=== PATIENT | male | born 1955 | race Caucasian/White ===

== ENCOUNTER 2020-10-14 08:17 | Outpatient (REF) | payer OTHER, SELFPAY | END 2020-10-14 08:18 | disposition home or self-care (01) | LOC: HO.HOSX 08:17 | PROVIDERS: Visit Provider Physician Assistant | DX: Z13.89 Encounter for screening for other disorder (principal) ==

== ENCOUNTER 2021-06-02 14:00 | Outpatient (RCR) | payer OTHER, SELFPAY | END 2021-07-23 08:08 | disposition home or self-care (01) | LOC: HO.PTWFD 14:00 | PROVIDERS: PCP Internal Medicine; Visit Provider Internal Medicine | DX: M54.2 Cervicalgia (principal) | CPT/HCPCS: 97110; 97140; 97162; 97535 ==

== ENCOUNTER → 2021-06-08 09:01 | Outpatient (BNVA) | payer OTHER, SELFPAY | PROVIDERS: PCP Internal Medicine; Visit Provider Surgery Vascular Surgery | DX: I83.11 Varicose veins of right lower extremity with inflammation (principal); I73.9 Peripheral vascular disease, unspecified; I89.0 Lymphedema, not elsewhere classified | CPT/HCPCS: 99202 ==

== ENCOUNTER → 2021-07-12 13:57 | Outpatient (REF) | payer OTHER, SELFPAY ==
--- NOTE | 2021-07-12 14:02 | CA_ITS ---
Transthoracic Echocardiogram Patient (Last, First, Middle): Curly Spencer C Gender: Male Date of : 1955 Age: 65 Procedure Date: 07/12/2021 Procedure Type: Transthoracic Echocardiogram Location: OP Height: 180.34 cm Weight: 136.08 kg BSA: 2.51 m2 Heart Rate: bpm BP: 150 / 80 mmHg Vibration Technician: DSHernando Referring MD: Barb Swift MD Symptoms: R60.0 EDEMA Study Quality: Fair ECG Rhythm: Sinus Conclusions: - The left ventricular systolic function is normal. The calculated ejection fraction is 61% - There is mild calcification of the aortic valve. - No obvious valvular pathology seen on this study. Findings Left Ventricle Normal left ventricular cavity size. There is mildly increased left ventricular wall thickness. The left ventricular systolic function is normal. The calculated ejection fraction is 61% by biplane method. There is no evidence of regional wall motion abnormalities. Right Ventricle Normal right ventricular cavity size and systolic function. Atria Both atria are normal in size. Aortic Valve There is a normal trileaflet aortic valve. There is mild calcification of the aortic valve. There is no aortic valve stenosis. There is trace (trivial) aortic valve regurgitation. Mitral Valve The mitral valve appears normal. There is no mitral valve regurgitation. There is no mitral valve stenosis. Pulmonic Valve The pulmonic valve was not well visualized. Tricuspid Valve Normal tricuspid valve structure. There is trace tricuspid valve regurgitation. The pulmonary artery systolic pressure is normal. Great Vessels The aortic annulus, sinuses of valsalva, and asc aorta are normal in size. Venous The inferior vena cava was not well visualized. Pericardium/Pleural There is no evidence of pericardial effusion. Prior Study Comparison No prior study available for comparison. Recommendations, Care & Conclusions No obvious valvular pathology seen on this study. Measurements 2D Linear Measurements IVSd: 1.13 0.6-0.9/0.6-1.0 cm LVIDd: 5.23 3.9-5.3/4.2-5.9 cm LVIDd Index: 2.08 2.4-3.2/2.2-3.1 cm/m2 LVIDs: 2.97 2.0-3.6 cm LVPWd: 1.15 0.7-1.1 cm Ao Root: 3.50 2.1-3.5 cm LA Diam: 3.50 2.7-3.8/3.0-4.0 cm LAIDs Index: 1.39 1.5-2.3 cm/m2 LV Mass: 291.73 67-162/88-224 g LV Mass Index: 116.23 43-95/49-115 g/m2 LVOT Diam: 2.20 3.0+(-)1.3 cm 2D Systolic Function EF 4C: 62.90 >55% EF 2C: 58.60 >55% EF BiP: 61.10 >55% Mitral Valve MV Pk E: 0.95 MV PK A: 1.06 MV Decel Time: 185.00 E/A: 0.90 E'Lateral: 12.40 E'Medial: 6.85 E/E' Med: 13.90 E/E' Lat: 7.70 PHT: 54.00 MVA PHT: 4.07 Decel [place]: 5.15 Aortic Valve AoV Pk Scott: 1.44 AoV Pk Grad: 8.00 LVOT LVOT Pk Scott: 1.02 LVOT Mn Scott: 0.67 LVOT VTI: 0.21 LVOT Pk Grad: 4.00 LVOT Mn Grad: 2.00 LVOT Diam: 2.20 LVOT Area: 3.80 Diastolic Function MV Pk E: 0.95 MV Pk A: 1.06 E/A: 0.90 E'Medial: 6.85 E/E' Med: 13.90 E' Laterial: 12.40 E/E' Lat: 7.70 Right Ventricle TAPSE (mm): 2.81 Tricuspid Valve TR Pk Scott: 1.90 TR Pk Grad: 14.00 Great Vessels Aorta Ao Root-2D: 3.50 2.0-3.7 cm Ao Asc: 3.70 2.1-3.4 cm Updated in Other Vendor System with Status of Final Gunnar Bell MD electronically signed on 07/13/2021 4:38:46 PM with status of Final
== END ==
LOC: HO.CARD 13:57
PROVIDERS: PCP Internal Medicine; Visit Provider Family Medicine
DX: R60.0 Localized edema (principal)
CPT/HCPCS: 93306

== ENCOUNTER 2021-07-27 14:22 | Outpatient (REF) | payer OTHER, SELFPAY ==
--- NOTE | ~2021-07-27 | US_ITS ---
EXAMINATION: NONINVASIVE ASSESSMENT OF THE ARTERIES OF BOTH LOWER EXTREMITIES WITH PVR EXAM AND BILATERAL LOWER EXTREMITY DUPLEX Aldair Reynoso MD CLINICAL INFORMATION: Peripheral vascular disease. TECHNIQUE: Ankle pulse volume recordings, ankle pressure measurements and ankle brachial indices were obtained of the lower extremity arterial system bilaterally in addition to duplex Doppler techniques with wave form analysis and measurement of velocities in the common femoral, profunda femoral, superficial femoral, popliteal and tibial arteries. The study was performed only at rest. COMPARISON: None FINDINGS: AT REST: Right Le. The right ankle-brachial index is: 1.3 * >0.97-1.25 = normal - no significant arterial disease * 0.75-0.96 = mild peripheral arterial disease * 0.5-0.74 = moderate peripheral arterial disease * <0.50 = severe peripheral arterial disease 2. Right ankle pressure: normal. 3. Right ankle PVR waveform: Mildly blunted. 4. Right direct duplex Doppler findings: Minimal plaque is present and multiphasic flow is seen throughout. Common Femoral: 122 Profunda Femoris: 82 Proximal SFA: 156 Mid SFA: 122 Distal SFA: 119 Popliteal: 70 Tibial: 139 LEFT LE. The left ankle-brachial index is: 1.2 * >0.97-1.25 = normal - no significant arterial disease * 0.75-0.96 = mild peripheral arterial disease * 0.5-0.74 = moderate peripheral arterial disease * <0.50 = severe peripheral arterial disease 2. Left ankle pressure: normal. 3. Left ankle PVR waveform: Mildly blunted. 4. Left direct duplex Doppler findings: Minimal plaque is present and multiphasic flow noted throughout. Common Femoral: 124 Profunda Femoris: 89 Proximal SFA: 127 Mid SFA: 113 Distal SFA: 100 Popliteal: 64 Tibial: 137 US/US arterial duplex LE BI IMPRESSION: There is no evidence of any hemodynamically significant lower extremity arterial disease by pressure, waveform or duplex Doppler criteria at rest.
--- NOTE | ~2021-07-27 | US_ITS ---
EXAMINATION: NONINVASIVE ASSESSMENT OF THE ARTERIES OF BOTH LOWER EXTREMITIES WITH PVR EXAM AND BILATERAL LOWER EXTREMITY DUPLEX Aldair Reynoso MD CLINICAL INFORMATION: Peripheral vascular disease. TECHNIQUE: Ankle pulse volume recordings, ankle pressure measurements and ankle brachial indices were obtained of the lower extremity arterial system bilaterally in addition to duplex Doppler techniques with wave form analysis and measurement of velocities in the common femoral, profunda femoral, superficial femoral, popliteal and tibial arteries. The study was performed only at rest. COMPARISON: None FINDINGS: AT REST: Right Le. The right ankle-brachial index is: 1.3 * >0.97-1.25 = normal - no significant arterial disease * 0.75-0.96 = mild peripheral arterial disease * 0.5-0.74 = moderate peripheral arterial disease * <0.50 = severe peripheral arterial disease 2. Right ankle pressure: normal. 3. Right ankle PVR waveform: Mildly blunted. 4. Right direct duplex Doppler findings: Minimal plaque is present and multiphasic flow is seen throughout. Common Femoral: 122 Profunda Femoris: 82 Proximal SFA: 156 Mid SFA: 122 Distal SFA: 119 Popliteal: 70 Tibial: 139 LEFT LE. The left ankle-brachial index is: 1.2 * >0.97-1.25 = normal - no significant arterial disease * 0.75-0.96 = mild peripheral arterial disease * 0.5-0.74 = moderate peripheral arterial disease * <0.50 = severe peripheral arterial disease 2. Left ankle pressure: normal. 3. Left ankle PVR waveform: Mildly blunted. 4. Left direct duplex Doppler findings: Minimal plaque is present and multiphasic flow noted throughout. Common Femoral: 124 Profunda Femoris: 89 Proximal SFA: 127 Mid SFA: 113 Distal SFA: 100 Popliteal: 64 Tibial: 137 US/US JESSI complete IMPRESSION: There is no evidence of any hemodynamically significant lower extremity arterial disease by pressure, waveform or duplex Doppler criteria at rest.
== END 2021-07-27 14:23 | disposition home or self-care (01) ==
LOC: HO.US 14:22
PROVIDERS: PCP Internal Medicine; Visit Provider Surgery Vascular Surgery
DX: I73.9 Peripheral vascular disease, unspecified (principal)
CPT/HCPCS: 93923; 93925

== ENCOUNTER 2021-08-03 12:50 | Outpatient (REF) | payer OTHER, SELFPAY ==
--- NOTE | ~2021-08-03 | US_ITS ---
EXAMINATION: BILATERAL LOWER EXTREMITY VENOUS ULTRASOUND (Reflux Exam) CLINICAL INDICATION: This is a 65-year-old male with venous insufficiency, varicose veins and reflux. COMPARISON: None. TECHNIQUE: Color flow triplex imaging and compression Doppler was performed to evaluate both the deep and the superficial systems bilaterally. To evaluate the superficial system, the examination was performed in the upright position. Color-flow Doppler ultrasound and compression ultrasound were utilized. In addition, maneuvers were utilized to demonstrate reflux. FINDINGS: 1. DEEP VENOUS ULTRASOUND OF THE RIGHT LOWER EXTREMITY: Common Femoral Vein: Compressible, normal respiratory variation and augmented flow. Femoral vein: Compressible, normal color flow and augmentation. Popliteal Vein: Compressible but with reflux of 660 ms. Deep Reflux: There is reflux in the popliteal vein but not the common femoral vein.. There is no evidence of a Martin's cyst. 2. SUPERFICIAL ULTRASOUND WITH DOPPLER OF RIGHT LOWER EXTREMITY GREAT SAPHENOUS VEIN: Saphenofemoral junction: 0.8 cm. The reflux time is greater than 3 seconds. Mid thigh: 0.7 cm. The reflux time is greater than 3 seconds. Above knee: 0.7 cm. The reflux time is greater than 3 seconds. Below knee: 0.5 cm. The reflux time is 292 ms per Mid calf: 0.4 cm. There is no reflux at this level and below. Ankle: 0.4 cm GSV REFLUX: There is reflux in the great saphenous vein extending from the saphenofemoral junction downward to below the knee. DUPLICATED GREAT SAPHENOUS VEIN: None SMALL SAPHENOUS VEIN: Upper: 0.4 cm Lower: 0.3 cm SSV REFLUX: No evidence of reflux. VEIN OF GIACOMINI: None Imaged. PERFORATORS: There are 0.4 cm calf perforators without reflux. VARICOSITIES: There are 0.5 cm proximal thigh varicose veins, 0.6 cm distal thigh varicose veins with greater than 2556 ms of reflux. There is 0.4 cm proximal calf varicose veins with 1632 ms of reflux. 3. DEEP VENOUS ULTRASOUND OF THE LEFT LOWER EXTREMITY: Common Femoral Vein: Compressible, normal respiratory variation and augmented flow. Femoral vein: Compressible, normal color flow and augmentation. Popliteal Vein: Compressible, normal augmentation. Deep Reflux: There is no evidence of reflux in the deep system in either the common femoral vein or the popliteal vein. There is no evidence of a Martin's cyst. 4. SUPERFICIAL ULTRASOUND WITH DOPPLER OF LEFT LOWER EXTREMITY GREAT SAPHENOUS VEIN: Saphenofemoral junction: 0.8 cm Mid thigh: 0.6 cm Above knee: 0.5 cm Below knee: 0.4 cm Mid calf: 0.4 cm Ankle: 0.4 cm GSV REFLUX: No evidence of reflux. DUPLICATED GREAT SAPHENOUS VEIN: None SMALL SAPHENOUS VEIN: Upper: 0.4 cm Lower: 0.3 cm SSV REFLUX: No evidence of reflux. VEIN OF GIACOMINI: None Imaged. PERFORATORS: There is a 0.4 cm factory representative in the calf with greater than 3 seconds of reflux. VARICOSITIES: There are 0.5 cm proximal thigh and 0.3 cm mid thigh varicose veins without reflux. US/US venous duplex LE BI IMPRESSION: 1. There is a patent right great saphenous vein with greater than 3 seconds of reflux at the saphenofemoral junction and extending down the right leg to below the knee. Reflux is seen at multiple levels. 2. There is a patent right small saphenous vein without evidence of reflux. 3. There are right leg varicose veins as described with reflux. 4. There is a patent left great saphenous vein without evidence of reflux. 5. There is a patent left small saphenous vein without evidence of reflux. 6. There are varicose veins as described without reflux in the left leg. 7. There is reflux in the right popliteal vein.
== END 2021-08-03 12:51 | disposition home or self-care (01) ==
LOC: HO.US 12:50
PROVIDERS: PCP Internal Medicine; Visit Provider Surgery Vascular Surgery
DX: I83.11 Varicose veins of right lower extremity with inflammation (principal)
CPT/HCPCS: 93970

== ENCOUNTER → 2021-11-30 08:39 | Outpatient (BNVA) | payer OTHER, SELFPAY | PROVIDERS: PCP Internal Medicine; Visit Provider Physician Assistant | DX: D64.9 Anemia, unspecified (principal) | CPT/HCPCS: 99202 ==

== ENCOUNTER 2021-11-30 09:34 | Outpatient (REF) | payer OTHER, SELFPAY ==
[2021-11-30 11:27] LABS: MANUAL DIFF FLAG NO
[2021-11-30 11:42] LABS: Basophils Percent Auto 0.5 % (0-2); Eosinophils Absolute Auto 0.1 X10*3/uL (0.0-0.4); Eosinophils Percent Auto 1.7 % (0-4); Hematocrit 35.3 % (42.0-52.0); Hemoglobin 11.6 g/dl (14.0-18.0); Imm Gran Abs Auto 0.02 X10*3/uL (0.00-0.03); Imm Gran Pct Auto 0.2 % (0.0-0.4); Lymphocytes Absolute Auto 2.7 X10*3/uL (1.2-4.9); Lymphocytes Percent Auto 33.3 % (20-40); Mean Corpuscular HGB Conc 32.9 g/dl (31.0-36.0); Mean Corpuscular Hemoglobin 31.3 pg (27.0-33.0); Mean Corpuscular Volume 95.1 fL (80.0-98.0); Mean Platelet Volume 10.2 fL (9.4-12.4); Monocytes Absolute Auto 0.5 X10*3/uL (0.1-1.2); Monocytes Percent Auto 6.2 % (2-11); Neutrophils Absolute Auto 4.7 x10*3/uL (2.0-8.3); Neutrophils Percent Auto 58.1 % (45-73); Platelet Count 238 X10*3/uL (160-400); Red Blood Count 3.71 X10*6/uL (4.60-5.80); Red Cell Distribution Width 11.9 % (11.0-16.0); White Blood Count 8.1 X10*3/uL (4.8-10.8)
[2021-11-30 12:05] LABS: Alanine Aminotransferase 21 U/L (0-40); Albumin Level 4.1 g/dL (3.5-5.0); Alkaline Phosphatase 55 U/L (39-117); Anion Gap 13 (12-20); Aspartate Amino Transferase 20 U/L (5-37); Bilirubin Total 0.4 mg/dL (0.0-1.0); Blood Urea Nitrogen 23 mg/dL (9-16); Calcium 9.2 mg/dL (8.4-10.2); Carbon Dioxide 27 mmol/L (22-29); Chloride 104 mmol/L (96-108); Estimated Glomerular Filt Rate > 60; Glucose Random 125 mg/dL (60-115); Iron 103 mcg/dL (45-160); Percent Iron Saturation 34 % (15-50); Potassium 4.9 mmol/L (3.3-5.1); Sodium 139 mmol/L (135-145); Total Iron Binding Capacity 306 mcg/dL (228-428); Total Protein 7.4 g/dL (6.5-8.0); Unsaturated Iron Binding 203 ug/dL
[2021-11-30 12:10] LABS: Ferritin 184 ng/mL (20-250); Thyroid Stimulating Hormone 2.97 uIU/mL (0.32-4.0)
[2021-11-30 12:25] LABS: Folate 8.5 ng/mL (> or = 4.0); Vitamin B12 467 pg/mL (200-900)
[2021-12-01 20:37] LABS: Transglutaminase IgA <1.0 U/mL
[2021-12-04 05:47] LABS: Smooth Muscle Antibody <20 U (<20)
[2021-12-04 12:37] LABS: Endomysial IgA Antibody Negative (Negative)
== END 2021-11-30 09:35 | disposition home or self-care (01) ==
LOC: HO.WFDLDS 09:34
PROVIDERS: Visit Provider Physician Assistant
DX: K59.09 Other constipation (principal); R74.8 Abnormal levels of other serum enzymes; R19.7 Diarrhea, unspecified; D64.9 Anemia, unspecified
CPT/HCPCS: 36415; 80053; 82607; 82728; 82746; 83540; 84443; 85025; 86015; 86231; 86364

== ENCOUNTER 2023-09-20 11:58 | Outpatient (REF) | payer OTHER, SELFPAY ==
[2023-09-20 14:24] LABS: Hematocrit 35.3 % (42.0-52.0); Hemoglobin 11.9 g/dl (14.0-18.0); Mean Corpuscular HGB Conc 33.7 g/dl (31.0-36.0); Mean Corpuscular Hemoglobin 31.6 pg (27.0-33.0); Mean Corpuscular Volume 93.9 fL (80.0-98.0); Mean Platelet Volume 10.5 fL (9.4-12.4); Platelet Count 298 X10*3/uL (160-400); Red Blood Count 3.76 X10*6/uL (4.60-5.80); White Blood Count 12.1 X10*3/uL (4.8-10.8)
[2023-09-20 14:54] LABS: Creatinine Urine 98.73 mg/dL
[2023-09-20 17:17] LABS: Alanine Aminotransferase 19 U/L (0-40); Albumin Level 4.1 g/dL (3.5-5.0); Alkaline Phosphatase 67 U/L (39-117); Anion Gap 11 (12-20); Aspartate Amino Transferase 22 U/L (5-37); Bilirubin Total 0.3 mg/dL (0.0-1.0); Blood Urea Nitrogen 19 mg/dL (9-16); Calcium 9.1 mg/dL (8.4-10.2); Carbon Dioxide 26 mmol/L (22-29); Chloride 106 mmol/L (96-108); Cholesterol 145 mg/dL (<200); Estimated Glomerular Filt Rate > 60; Glucose Random 82 mg/dL (60-115); HDL Cholesterol 34 mg/dL (>40); LDL Cholesterol Calculated 80 mg/dL (<100); Sodium 139 mmol/L (135-145); TSH reflex Free T4 2.82 uIU/mL (0.32-4.0); Total Protein 7.8 g/dL (6.5-8.0); Triglycerides 156 mg/dL (<150)
== END 2023-09-20 11:59 | disposition home or self-care (01) ==
LOC: HO.CHCLDS 11:58
PROVIDERS: Visit Provider Internal Medicine
DX: E11.9 Type 2 diabetes mellitus without complications (principal); I10 Essential (primary) hypertension
CPT/HCPCS: 36415; 80053; 80061; 82043; 82570; 84443; 85027

== ENCOUNTER 2024-05-31 09:55 | Outpatient (REF) | payer OTHER, SELFPAY ==
--- NOTE | ~2024-05-31 | FL_ITS ---
EXAMINATION: XR FLUOROSCOPY UPPER GI WITH AIR CLINICAL INFORMATION: Dysphagia. COMPARISON: None TECHNIQUE: Fluoroscopic air contrast upper GI examination was performed utilizing standard techniques with thin and thick barium and effervescent granules. Numerous spot images were obtained. FINDINGS: Lateral cine images of the oropharynx and hypopharynx demonstrate normal swallow mechanism with normal epiglottic inversion and soft palate elevation. No tracheal penetration, glottic or subglottic aspiration identified. No nasopharyngeal reflux present. Hypopharyngeal structures appear normal without evidence of mass or diverticulum. There is mild cricopharyngeal achalasia. Dual and single contrast images of the esophagus demonstrate a patulous esophagus with a corkscrew contour. No evidence of stricture, mass, or ulcerations identified. Esophageal peristalsis is severely disorganized. There is significant narrowing of the GE junction bird beak smooth appearance, highly suggestive of achalasia. No evidence of hiatus hernia identified. No significant gastroesophageal reflux was seen during the course of the examination and on reflux views. Dual contrast and single contrast images of the stomach demonstrated a normal contour. There are multiple foci of contrast pooling throughout the stomach that likely represent small superficial aphthous ulcers. No masses are present. Contrast freely passed into the gastric antrum and duodenal bulb without delay. Single and air-contrast images of the duodenal bulb demonstrate no abnormality. The duodenal sweep has a normal appearance, course, and mucosal fold appearance. The imaged proximal jejunum has a normal fold pattern and caliber. FLUOROSCOPY TIME: 4 minutes 54 seconds Number of Spot Images: 11 Number of Cine: 16 DOSE AREA PRODUCT: 4238 uGy-m2 (microgray-meter squared) FL/FL barium swallow IMPRESSION: 1. Patulous esophagus with a corkscrew appearance and severely disorganized peristalsis consistent with severe esophageal motility. 2. Significant narrowing of the GE junction with a smooth narrowed appearance fairly classic for achalasia. 3. Multiple foci of contrast pooling throughout the stomach that likely represent small superficial aphthous ulcers. Recommend correlation with EGD. 4. Mild cricopharyngeal achalasia. This procedure was performed by Josse Dotson PA-C, and supervised by Dr. Reddy Electronically signed by: David Reddy MD 05/31/2024 03:55 PM EDT
== END 2024-05-31 09:56 | disposition home or self-care (01) ==
LOC: HO.XRAY 09:55
PROVIDERS: PCP Internal Medicine; Visit Provider Internal Medicine
DX: R13.11 Dysphagia, oral phase (principal)
CPT/HCPCS: 74220

== ENCOUNTER → 2024-05-31 09:57 | Outpatient (BNV) | payer OTHER, SELFPAY | PROVIDERS: PCP Internal Medicine; Visit Provider Radiology Diagnostic Radiology | DX: R13.10 Dysphagia, unspecified (principal) | CPT/HCPCS: 74221 ==

== ENCOUNTER 2024-11-01 10:32 | Outpatient (REF) | payer OTHER, SELFPAY ==
--- OUTSIDE RECORDS SUMMARY | 2024-11-01 11:38 | XMS_ITS | Encounter Summary ---
Author Organization [employer] Address [address] [place] [address] [address] [address] Care Team Providers Care Gate Tender Name Role Phone Silverio Figueroa MD Primary Care Provider [phone] Encounter Details Date Type Department Care Team (Latest Contact Info) Description 05/09/2022 Abstract [facility] CONVERSIONS Dental, Provider, DDS Social History Tobacco Use Types Packs/Day Years Used Date Smoking Tobacco: Never Assessed Sex and Gender Information Value Date Recorded Sex Assigned at Male 07/25/2022 10:22 AM EDT Legal Sex Male 10:22 AM EDT Gender Identity Male 07/25/2022 10:22 AM EDT Sexual Orientation Straight 07/25/2022 10 :22 AM EDT documented as of this encounter Plan of Treatment Upcoming Encounters Date Type Department Care Team (Late st Contact Info) Description 11/05/2024 11:30 AM EST Office Visit [facility] MED [facility] PEDS [address] [place] [address] Silverio Figueroa MD [address] [place] [address] documented as of this encounter Visit Diagnoses Not on filedocumented in this encounter Care Teams Gate Tender Relationship Specialty Start Date End Date Silverio Figueroa MD [address] [place] [address] PCP - General Internal Medicine 09/25/18 documented as of this encounter
--- OUTSIDE RECORDS SUMMARY | 2024-11-01 11:38 | XMS_ITS | Encounter Summary ---
Author Organization [employer] Address [address] [facility] 7 [place] [address] Care Team Providers Care Medical Director Name Role Phone Silverio Figueroa MD Primary Care Provider [phone] Encounter Details Date Type Department Care Team ([facility] st Contact Info) Description 08/31/2023 Orders Only [facility] MED & PEDS [address] [place], [place] [phone] Silverio Figueroa MD [address] [place] [address] Primary hypertension (Primary Dx); Type 2 diabetes mellitus without complication, without long-term current use of insulin ([facility]) Social History Tobacco Use Types Packs/Day Years Used Date Smoking Tobacco: Every Day Cigarettes Cigars Passive Smoke Exposure: Never Smokeless Tobacco: Never Alcohol Use Standard Drinks/Week Comments Never 0 (1 standard drink = 0.6 oz pur e alcohol) Depression Answer Date Recorded Patient Health Questionnaire-9 Score 0 10/27/2022 Housing Stability Answer Date Recorded What is your housing situation today? I have hinamina gregg 07/13/[address] you li ve. Do you have problems with any of the following? None of the above 07/13/2023 Food Insecurity Answer Date Recorded Within the past 12 months, y ou worried that your food would run out before you got money to buy more: Never True 07/13/2023 Within the past 12 months,th e food you bought just didn't last and you didn't have enough money to get more: Never True Transportation Answer Date Recorded In the past 12 months, has l ack of transportation kept you from medical appts, meetings, work or from getting things needed for daily living? No 07/13/2023 Utilities Answer Date Recorded In the past 12 months, has t he electric, gas, oil or water company threatened to shut off services in your home? No 07/13/2023 Depression Answer Date Recorded Patient Health Questionnaire-2 Score 0 10/27/2022 Sex and Gender Information Value Date Recorded Sex Assigned at Male 07/25/2022 10:22 AM EDT Legal Sex Male 10:22 AM EDT Gender Identity Male 07/25/2022 10:22 AM EDT Sexual Orientation Straight 07/25/2022 10 :22 AM EDT documented as of this encounter Plan of Treatment Upcoming Encounters Date Type Department Care Team ([facility] st Contact Info) Description 11/05/2024 11:30 AM EST Office Visit [facility] MED & PEDS [address] [place] [address] Silverio Figueroa MD [address] [place], [place] [phone] documented as of this encounter Procedures Procedure Name Priority Date/Time Associated Diagnosis Comments ALBUMIN, RANDOM URINE W/CREATININE Routine 09/20/2023 12:00 PM EST Primary hypertension Type 2 diabetes mellitus without complication, without long-term current use of insulin (CMS/HCC) TSH W/REFLEX TO FT4 Routine 09/20/2023 1 1:59 AM EST Primary hypertension Type 2 diabetes mellitus without complication, without long-term current use of insulin (CMS/HCC) CBC Routine 09/20/2023 11:59 AM EST Primary hypertension Type 2 diabetes mellitus without complication, without long-term current use of insulin (CMS/HCC) LIPID PANEL, STANDARD Routine 09/20/2023 11:59 AM EST Primary hypertension Type 2 diabetes mellitus without complication, without long-term current use of insulin (CMS/HCC) COMPREHENSIVE METABOLIC PANEL Routine 09/20/2023 11:59 AM EST Primary hypertension Type 2 diabetes mellitus without complication, without long-term current use of insulin ([facility]) documented in this encounter Results * Albumin, Random Urine W/Creatinine (09/20/2023 12:00 PM EST) Creatinine, Urine 98.73 mg/dL [facility] Microalbumin Urine 6.0 mg/L [facility] Microalbum Creatinine Ratio Ur 6.0 <30 ug/mg cr [facility] Comment:Albumin/Creatinine R atio Reference Ranges: Normal: < 30 ug/mg creatinine Microalbuminuria: 30 - 300 ug/mg creatinineClinical Albuminuria: > 300 ug/mg creatinine Urine (Urine, Random) 09/20/2023 12:00 PM EST 09/20/2023 2:09 PM EST us Silverio Figueroa MD LAB URINE ORDERABLES Final Result Performing Organization Address City/State/[facility] Co de Phone Number [facility] [address] [place] [phone] * (ABNORMAL) Lipid Panel, Standard (09/20/2023 11:59 AM EST) Triglycerides 156(H) <150 mg/dL [facility] Comment:Desirable Triglyceri de: less than 150 mg/dLBorderline High Triglyceride 150-199 mg/dLHigh Triglyceride: 200-499 mg/dLVery High Triglyceride: greater than or equal to 5OO mg/dL Cholesterol 145 <200 mg/dL [facility] Comment:Desirable Cholestero l: less than 200 mg/dLBorderline High Cholesterol: 200-239 mg/dLHigh Cholesterol: greater than 239 mg/dL LDL Cholesterol Calculated 80 <100 mg/dL [facility] Comment:Desirable LDL: less than 100 mg/dLNear Optimal/Above Optimal LDL: 110- 129 mg/dLBorderline High LDL: 130-159 mg/dLHigh LDL: 160-189 mg/dLVery High LDL: greater than or equal to 190 mg/dL HDL Cholesterol 34(L) >40 mg/dL [facility] Comment:Desirable HDL: great er than 40 mg/dL Note: This HDL assay may give artificially low results in patients with liver disease. Blood Venous blood specimen / Unknown 09/20/2023 11:59 AM EST 09/20/2023 2:09 PM EST us Silverio Figueroa MD LAB BLOOD ORDERABLES Final Result Performing Organization Address City/[facility]/ZIP Co de Phone Number [facility] [address] [place] [address] [phone] * TSH W/Reflex to FT4 (09/20/2023 11:59 AM EST) TSH reflex Free T4 2.82 0.32 - 4.0 uIU/mL [facility] Blood 09/20/2023 11:5 9 AM EST 09/20/2023 2:09 PM EST us Silverio Figueroa MD LAB BLOOD ORDERABLES Final Result Performing Organization Address City/[facility]/ZIP Co de Phone Number [facility] [address] [place] [phone] * (ABNORMAL) Comprehensive Metabolic Panel (09/20/2023 11:59 AM EST) Sodium 139 135 - 145 mmol/L [facility] Potassium 4.0 3.3 - 5.1 mmol/L [facility] Chloride 106 96 - 108 mmol/L [facility] Carbon Dioxide 26 22 - 29 mmol/L [facility] Anion Gap 11(L) 12 - 20 [facility] Urea Nitrogen (BUN) 19(H) 9 - 16 mg/dL [facility] Creatinine, Serum 1.03 0.5 - 1.4 mg/dL [facility] Estimated Glomerular Filt Rate >60 [facility] Comment:NOTE: For -Am erican individuals, multiply the result by 1.210.Chronic Kidney Disease: Estimated GFR < 60 mL/min/[id number] Kidney Disease: Estimated GFR < 15 mL/min/1.73m2 Glucose 82 60 - 115 mg/dL [facility] Calcium 9.1 8.4 - 10.2 mg/dL [facility] Bilirubin, Total 0.3 0.0 - 1.0 mg/dL [facility] Aspartate Amino Transferase 22 5 - 37 U/L [facility] Alanine Aminotransferase 19 0 - 40 U/L [facility] Total Protein 7.8 6.5 - 8.0 g/dL [facility] Albumin Level 4.1 3.5 - 5.0 g/dL [facility] Alkaline Phosphatase 67 39 - 117 U/L [facility] Blood Venous blood specimen / Unknown 09/20/2023 11:59 AM EST 09/20/2023 2:09 PM EST us Silverio Figueroa MD LAB BLOOD ORDERABLES Final Result Performing Organization Address City/State/[facility] Co de Phone Number [facility] [address] [place] [phone] * (ABNORMAL) CBC (09/20/2023 11:59 AM EST) White Blood Count 12.1(H) 4.8 - 10.8 X10*3/uL [facility] Red Blood Count 3.76(L) 4.60 - 5.80 X10*6/uL [facility] Hemoglobin 11.9(L) 14.0 - 18.0 g/dl [facility] Hematocrit 35.3(L) 42.0 - 52.0 % [facility] Mean Corpuscular Volume 93.9 80.0 - 98.0 fL [facility] Mean Corpuscular Hemoglobin 31.6 27.0 - 33.0 pg [facility] Mean Corpuscular HGB Conc 33.7 31.0 - 36.0 g/dl [facility] Red Cell Distribution Width 12.0 11.0 - 16.0 % [facility] Platelet Count 298 160 - 400 X10*3/uL [facility] Mean Platelet Volume 10.5 9.4 - 12.4 fL [facility] NRBC Pct Auto 0.0 0.0 - 0.2 /100WBC [facility] NRBC Abs Auto 0.000 0.0 - 0.012 X10*3/uL [facility] Blood Venous blood specimen / Unknown 09/20/2023 11:59 AM EST 09/20/2023 2:09 PM EST us Silverio Figueroa MD LAB BLOOD ORDERABLES Final Result [facility] [address] [place] [phone] [phone] documented in this encounter Visit Diagnoses Diagnosis Primary hypertension- Primary Unspecified essential hypertension Type 2 diabetes mellitus without complication, without long-term current use of insulin ([facility]) documented in this encounter Additional Health Concerns Assessment Noted Time PHQ-9 Depression Total Score: 0 10/27/19 23 1:49 PM EST documented as of this encounter Care Teams Medical Director Relationship Specialty Start Date End Date Silverio Figueroa MD [address] [place] [phone] PCP - General Internal Medicine 09/25/18 documented as of this encounter
--- OUTSIDE RECORDS SUMMARY | 2024-11-01 11:38 | XMS_ITS | Encounter Summary ---
Author Organization [employer] Address [address] [facility] 7 [place] [address] Care Team Providers Care Cdl Truck Driver Name Role Phone Silverio Figueroa MD Primary Care Provider [phone] Reason for Visit * Reason Comments Pre-visit Planning SDOH unable to reach LVM Encounter Details Date Type Department Care Team ([facility] st Contact Info) Description 10/29/2024 Patient Outreach [facility] CHC MED & PEDS [address] [place], [place] [phone] Silverio Figueroa MD [address] [place] [address] Pre-visit Planning (SDOH unable to reach LVM) Social History Tobacco Use Types Packs/Day Years Used Date Smoking Tobacco: Every Day Cigarettes Cigars Passive Smoke Exposure: Never Smokeless Tobacco: Never Alcohol Use Standard Drinks/Week Comments Never 0 (1 standard drink = 0.6 oz pur e alcohol) Depression Answer Date Recorded Patient Health Questionnaire-9 Score 0 10/27/2022 Housing Stability Answer Date Recorded What is your housing situation today? I have hina gregg 03/18/[address] you li ve. Do you have problems with any of the following? None of the above 03/18/2024 Food Insecurity Answer Date Recorded Within the past 12 months, y ou worried that your food would run out before you got money to buy more: Never True 03/18/2024 Within the past 12 months,th e food you bought just didn't last and you didn't have enough money to get more: Never True Transportation Answer Date Recorded In the past 12 months, has l ack of transportation kept you from medical appts, meetings, work or from getting things needed for daily living? No 03/18/2024 Utilities Answer Date Recorded In the past 12 months, has t he electric, gas, oil or water company threatened to shut off services in your home? No 03/18/2024 Depression Answer Date Recorded Patient Health Questionnaire-2 Score 0 10/27/2022 Internet Access Answer Date Recorded Internet Access Q1 Yes 05/27/2024 Internet Access Q2 Not on file 05/27/2024 Sex and Gender Information Value Date Recorded Sex Assigned at Male 07/25/2022 10:22 AM EDT Legal Sex Male 10:22 AM EDT Gender Identity Male 07/25/2022 10:22 AM EDT Sexual Orientation Straight 07/25/2022 10 :22 AM EDT documented as of this encounter Progress Notes * Brinda Crane - 10/29/2024 4:13 PM EST ASIM Woodruff placed outbound call to patient to complete pre-visit planning. No answer at this time. Patient name and were not confirmed. CC left voicemail requesting return call. Direct contactinformation provided. documented in this encounter Plan of Treatment Upcoming Encounters Date Type Department Care Team ([facility] st Contact Info) Description 11/05/2024 11:30 AM EST Office Visit [facility] CHC MED & PEDS [address] [place] [address] Silverio Figueroa MD [address] [place] [address] documented as of this encounter Visit Diagnoses Not on filedocumented in this encounter Additional Health Concerns Assessment Noted Time PHQ-9 Depression Total Score: 0 10/27/19 23 1:49 PM EST documented as of this encounter Care Teams Cdl Truck Driver Relationship Specialty Start Date End Date Silverio Figueroa MD [address] [place] [address] PCP - General Internal Medicine 09/25/18 documented as of this encounter
--- OUTSIDE RECORDS SUMMARY | 2024-11-01 11:38 | XMS_ITS | Encounter Summary ---
Author Organization [employer] Address [address] [facility] 7 [place] [address] Care Team Providers Care Divinity Teacher Name Role Phone Silverio Figueroa MD Primary Care Provider [phone] Reason for Visit * Reason Onset Date Comments Statin Therapy 08/30/2023 Encounter Details Date Type Department Care Team ([facility] Contact Info) Description 08/30/2023 Telephone [facility] MED & PEDS [address] [place], [place] [phone] Silverio Figueroa MD [address] [place] [address] Statin Therapy Social History Tobacco Use Types Packs/Day Years Used Date Smoking Tobacco: Every Day Cigarettes Cigars Passive Smoke Exposure: Never Smokeless Tobacco: Never Alcohol Use Standard Drinks/Week Comments Never 0 (1 standard drink = 0.6 oz pur e alcohol) Depression Answer Date Recorded Patient Health Questionnaire-9 Score 0 10/27/2022 Housing Stability Answer Date Recorded What is your housing situation today? I have hina gregg 07/13/[address] you [...] AM EDT documented as of this encounter Miscellaneous Notes * Telephone Encounter - Gwen Winslow RN - 08/31/2023 10:57 AM EST Placed call to pt regarding message below. Pt agrees to RV appt on 09/20/23. * Telephone Encounter - Gwen Winslow RN - 08/30/2023 6:13 PM EST Please review message below and advise if statin therapy can be prescribed. * Telephone Encounter - Tevin Gray - 08/30/2023 4:51 PM EST Tc from Yoli with [facility] requesting Statin Therapy for pt due to to pt Diabetic Diagnosis, Please contact Yoli At [phone] documented in this encounter Plan of Treatment Upcoming Encounters Date Type Department Care Team (Late st Contact Info) Description 11/05/2024 11:30 AM EST Office Visit [facility] CHC MED & PEDS [address] [place], [place] [phone] Silverio Figueroa MD [address] [place], [place] [phone] documented as of this encounter Visit Diagnoses Not on filedocumented in this encounter Additional Health Concerns Assessment Noted Time PHQ-9 Depression Total Score: 0 10/27/19 23 1:49 PM EST documented as of this encounter Care Teams Divinity Teacher Relationship Specialty Start Date End Date Silverio Figueroa MD [address] [place] [address] PCP - General Internal Medicine 09/25/18 documented as of this encounter
--- OUTSIDE RECORDS SUMMARY | 2024-11-01 11:38 | XMS_ITS | Encounter Summary ---
Author Organization [employer] Address [address] [facility] [address], [place] [address] Care Team Providers Care Greeting Card Writer Name Role Phone Silverio Figueroa MD Primary Care Provider [phone] Reason for Visit * Reason Onset Date Comments CT scan 04/13/2023 Encounter Details Date Type Department Care Team ([facility] st Contact Info) Description 04/13/2023 Telephone [facility] CHC MED & PEDS [address] [place], [place] [phone] Silverio Figueroa MD [address] [place] [address] CT scan Social History Tobacco Use Types Packs/Day Years Used Date Smoking Tobacco: Every Day Cigarettes Cigars Passive Smoke Exposure: Never Smokeless Tobacco: Never Alcohol Use Standard Drinks/Week Comments Never 0 (1 standard drink = 0.6 oz pur e alcohol) Depression Answer Date Recorded Patient Health Questionnaire-9 Score 0 10/27/2022 Depression Answer Date Recorded Patient Health Questionnaire-2 Score 0 10/27/2022 Sex and Gender Information Value Date Recorded Sex Assigned at Male 07/25/2022 10:22 AM EDT Legal Sex Male 10:22 AM EDT Gender Identity Male 07/25/2022 10:22 AM EDT Sexual Orientation Straight 07/25/2022 10 :22 AM EDT documented as of this encounter Miscellaneous Notes * Telephone Encounter - Lisa Nasim - 05/11/2023 2:50 PM EDT Tacho Fernando at [facility] re calling in regards to message below. * Telephone Encounter - Tevin Gray - 05/08/2023 3:59 PM EDT Tc from Kassie with [facility] calling in regards to message sent Previously. Kassie indicates that the form is missing the pack year history. Please contact Kassie at [phone] * Telephone Encounter - Lisa Rouse - 04/19/2023 9:46 AM EDT Tc from Rita at [facility] re calling inn regards to message below. * Telephone Encounter - Natalie Mariano - 04/13/2023 10:35 AM EDT Tc from [facility] calling to advise PCP CT lung screen was sent it wrong form and faxed the form they need it in. documented in this encounter Plan of Treatment Upcoming Encounters Date Type Department Care Team (Late st Contact Info) Description 11/05/2024 11:30 AM EST Office Visit [facility] MED & PEDS [address] [place] [address] Silverio Figueroa MD [address] [place] [address] documented as of this encounter Visit Diagnoses Not on filedocumented in this encounter Additional Health Concerns Assessment Noted Time PHQ-9 Depression Total Score: 0 10/27/19 23 1:49 PM EST documented as of this encounter Care Teams Greeting Card Writer Relationship Specialty Start Date End Date Silverio Figueroa MD [address] [place] [address] PCP - General Internal Medicine 09/25/18 documented as of this encounter
--- OUTSIDE RECORDS SUMMARY | 2024-11-01 11:38 | XMS_ITS | Encounter Summary ---
Author Organization [employer] [facility] Address [address] [place] [address] [address], [place] [address] Care Team Providers Care Registered Pharmacist Name Role Phone Silverio Figueroa MD Primary Care Provider [phone] Encounter Details Date Type Department Care Team (Late st Contact Info) Description 08/22/2022 Abstract [facility] ADULT DENTAL [address] [place] [address] Dental, Provider, DDS Social History Tobacco Use [...] Description 11/05/2024 11:30 AM EST Office Visit [facility] MED & PEDS [address] [place] [address] Silverio Figueroa MD [address] [place] [address] documented as of this encounter Visit Diagnoses Not on filedocumented in this encounter Care Teams Registered Pharmacist Relationship Specialty Start Date End Date Silverio Figueroa MD [address] [place] [address] PCP - General Internal Medicine 09/25/18 documented as of this encounter
--- OUTSIDE RECORDS SUMMARY | 2024-11-01 11:38 | XMS_ITS | Encounter Summary ---
Author Organization [employer] Address [address] [place] [address] [address], [place] [address] Care Team Providers Care Medicine Man Name Role Phone Silverio Figueroa MD Primary Care Provider [phone]- [phone] Encounter Details Date Type Department Care Team (Latest Contact Info) Description 05/28/2019 Abstract [facility] CONVERSIONS Dental, Provider, DDS Social History Tobacco [...] Description 11/05/2024 11:30 AM EST Office Visit [facility] CHC MED & PEDS [address] [place] [address] Silverio Figueroa MD [address] [place] [address] documented as of this encounter Visit Diagnoses Not on filedocumented in this encounter Care Teams Medicine Man Relationship Specialty Start Date End Date Silverio Figueroa MD [address] [place] [address] PCP - General Internal Medicine 09/25/18 documented as of this encounter
--- OUTSIDE RECORDS SUMMARY | 2024-11-01 11:38 | XMS_ITS | Encounter Summary ---
Author Organization [employer] Address [address] [facility] 7 [place] [address] Care Team Providers Care Manager Education Name Role Phone Silverio Figueroa MD Primary Care Provider [phone] Encounter Details Date Type Department Care Team (Late st Contact Info) Description 09/01/2023 Abstract [facility] [address] [place] [address] Silverio Figueroa MD [address] [place] [address] Social History Tobacco Use Types Packs/Day Years [...] Description 11/05/2024 11:30 AM EST Office Visit [facility] MED & PEDS [address] [place] [address] Silverio Figueroa MD [address] [place] [address] documented as of this encounter Visit Diagnoses Not on filedocumented in this encounter Additional Health Concerns Assessment Noted Time PHQ-9 Depression Total Score: 0 10/27/19 23 1:49 PM EST documented as of this encounter Care Teams Manager Education Relationship Specialty Start Date End Date Silverio Figueroa MD [address] [place] [address] PCP - General Internal Medicine 09/25/18 documented as of this encounter
--- OUTSIDE RECORDS SUMMARY | 2024-11-01 11:38 | XMS_ITS | Encounter Summary ---
Author Organization [email or web address] Address [address] [place] [address] [address], [place] [address] Care Team Providers Care Transit Worker Name Role Phone Silverio Figueroa MD Primary Care Provider [phone]- [phone] Encounter Details Date Type Department Care Team (Latest Contact Info) Description 02/18/2022 Abstract [facility] CONVERSIONS Dental, Provider, DDS Social History Tobacco [...] Description 11/05/2024 11:30 AM EST Office Visit [facility] CHC MED & PEDS [address] [place] [address] Silverio Figueroa MD [address] [place] [address] documented as of this encounter Visit Diagnoses Not on filedocumented in this encounter Care Teams Transit Worker Relationship Specialty Start Date End Date Silverio Figueroa MD [address] [place] [address] PCP - General Internal Medicine 09/25/18 documented as of this encounter
--- OUTSIDE RECORDS SUMMARY | 2024-11-01 11:38 | XMS_ITS | Encounter Summary ---
Author Organization [employer] Address [address] [place] [address] 7[place] [address] Care Team Providers Care Cook Chief Name Role Phone Silverio Figueroa MD Primary Care Provider [phone]- [phone] Encounter Details Date Type Department Care Team (Latest Contact Info) Description 10/13/2020 Abstract [facility] CONVERSIONS Dental, Provider, DDS Social History Tobacco [...] Description 11/05/2024 11:30 AM EST Office Visit [facility] CHC MED & PEDS [address] [place] [address] Silverio Figueroa MD [address] [place] [address] documented as of this encounter Visit Diagnoses Not on filedocumented in this encounter Care Teams Cook Chief Relationship Specialty Start Date End Date Silverio Figueroa MD [address] [place] [address] PCP - General Internal Medicine 09/25/18 documented as of this encounter
--- OUTSIDE RECORDS SUMMARY | 2024-11-01 11:38 | XMS_ITS | Encounter Summary ---
Author Organization [employer] Address [address] [place] [address] [address] Care Team Providers Care Mushroom Picker Name Role Phone Silverio Figueroa MD Primary Care Provider +1- [phone] Encounter Details Date Type Department Care Team (Late Contact Info) Description 01/27/2023 Orders Only [facility] MEDICINE [address] [place], [place] [phone] Josie Perez LPN Social History Tobacco Use Types Packs/Day Years [...] Description 11/05/2024 11:30 AM EST Office Visit [facility] CHC MED & PEDS [address] [place], [place] [phone] Silverio Figueroa MD [address] [place], [place] [phone] documented as of this encounter Visit Diagnoses Not on filedocumented in this encounter Additional Health Concerns Assessment Noted Time PHQ-9 Depression Total Score: 0 10/27/19 23 1:49 PM EST documented as of this encounter Care Teams Mushroom Picker Relationship Specialty Start Date End Date Silverio Figueroa MD [address] [place] [address] PCP - General Internal Medicine 09/25/18 documented as of this encounter
--- OUTSIDE RECORDS SUMMARY | 2024-11-01 11:38 | XMS_ITS | Clinical Summary ---
Author Organization [employer] Address [address] [facility] 7[address] [place] [address] Care Team Providers Care Metal Furniture Polisher Name Role Phone Silverio Figueroa MD Primary Care Provider [phone]- [phone] Allergies No known active allergies Medications ibuprofen 800 MG tabletIndication s:Chronic midline low back pain without sciatica Take 1 tab orally tid prn pain 90 tablet 3 3 Active Blood Glucose Monitoring Suppl (FreeStyle [place] Lite) w/Device kit TEST BLOOD SUGAR EVERY DAY 2 Active Blood Glucose Monitoring Suppl (FreeStyle glucose monitoring) kitIndications:T ype 2 diabetes mellitus without complication, without long-term current use of insulin ([facility]) To use 2 times a day 1 each 3 Active Additional Information Patient not taking.Reported on 04/23/2024 FREESTYLE LITE test strip TEST BLOOD SUGAR EVERY DAY 50 strip 11 3 Active Additional Information Patient not taking.Reported on 04/23/2024 Blood Glucose Monitoring Suppl (ONE TOUCH ULTRA 2) w/Device kit 1 Units 3 times daily. 1 kit 3 Active Additional Information Patient not taking.Reported on 04/23/2024 OneTouch Delica Lancets 33G misc 1 Units 3 times daily. 100 each 11 3 Active Additional Information Patient not taking.Reported on 04/23/2024 verapamil SR (Calan SR) 120 MG ER tabletIndication s:Primary hypertension Take 1 tablet (120 mg) by mouth at bedtime. Do not crush or chew. 30 tablet 11 4 11/21/19 25 Active cholecalciferol (Vitamin D-3) 50 MCG (1999 UT) capsule TAKE ONE CAPSULE BY MOUTH AT BEDTIME 90 capsule 3 4 Active varenicline (Chantix) 0.5 MG tabletIndication s:Smoking Take 1 tablet (0.5 mg) by mouth Once per day for 3 days, THEN 1 tablet (0.5 mg) 2 times daily for 4 days, THEN 2 tablets (1 mg) 2 times daily. Take with full glass of water.. 71 tablet 2 4 04/01/20 25 Active nicotine (Nicoderm CQ) 14 MG/24HR patchIndications :Smoking Place 1 patch on the skin 1 (one) time each day at the same time. 30 patch 4 Active bisoprolol (Zebeta) 5 MG tabletIndication s:Essential hypertension TAKE ONE TABLET BY MOUTH EVERY MORNING 30 tablet 5 4 Active ammonium lactate (Lac-Hydrin) 12 % lotionIndication s:Dry skin APPLY TO THE AFFECTED AREA(S) NEEDED FOR DRY SKIN 226 g 2 4 Active furosemide (Lasix) 20 MG tablet TAKE ONE TABLET EVERY MORNING AND TAKE ONE-HALF TABLET EVERY afternoon 135 tablet 1 4 Active Dulaglutide 4.5 MG/0.5ML solution auto-injectorInd ications:Type 2 diabetes mellitus without complication, without long-term current use of insulin ([facility]) Inject 0.5 mL (4.5 mg) under the skin 1 (one) time per week. 2 mL 3 4 Active Active Problems Problem Noted Date Diagnosed Date Diabetes mellitus 10/27/2022 Chronic midline low back pain without sciatica 0 09/27/2022 Chronic hepatitis C 09/20/2016 Elevated LFTs 08/24/2016 Hypertensive disorder 01/22/2015 Arthropathy 12/30/2011 Backache 12/30/2011 Pain in joint involving lower leg 12/30/2011 Talipes 12/30/2011 Tobacco dependence syndrome 12/30/2011 Encounters Date Type Department Care Team Description 10/29/2024 Patient Outreach [facility] [address] [place] [address] Silverio Figueroa MD Pre-visit Planning (SDOR unable to reach [facility]) 09/24/2024 10:30 AM EST Office Visit [facility] [address] [place] [address] Silverio Figueroa MD Primary hypertension (Primary Dx); Type 2 diabetes mellitus without complication, without long-term current use of insulin ([facility]); Elevated LFTs 09/24/2024 Travel 08/20/2024 Travel 08/16/2024 9:30 AM EST Office Visit [facility] ADULT DENTAL [address] [place] [address] Minoo Dumont, NILDA 08/01/2024 9:00 AM EST Office Visit [facility] AD[facility] [address] [place] [address] Sherry Johnson Dental calculus (Primary Dx) from Last 3 Months Immunizations Name Administration Dates Next Due Influenza High-dose Quadriva lent Preservative Free 07/25/2023,06/21/2022 Influenza Injectable Quadriv alant Preservative Free IIV4 MDCK 08/09/2021,06/29/2020 Influenza injectable quadriv alent IIV4 with preservative 06/10/2019,07/25/2018,06/26/2017,2015,06/24/2015 Influenza, High Dose Seasona l, Preservative Free 06/05/2024 Influenza, IIV3, injectable 08/12/2014 Influenza, Split (incl. keegan fied surface antigen) 05/29/2013,08/30/2012 Tdap 08/22/2016 Zoster, Recombinant 03/30/2021,01/26/2021 Zoster, live 06/26/2017 Family History Medical History Relation Name Comments Blindness Other Relation Name Status Comments Other Social History Tobacco Use Types Packs/Day Years Used Date Smoking Tobacco: Every Day Cigarettes Cigars Passive Smoke Exposure: Never Smokeless Tobacco: Never Tobacco Cessation:Ready to Q uit: Not Asked; Counseling Given: Not Answered Alcohol Use Standard Drinks/Week Comments Never 0 [...] Orientation Straight 07/25/2022 10 :22 AM EDT Last Filed Vital Signs Vital Sign Reading Time Taken Comments Blood Pressure 156/78 09/24/2024 10:42 AM EST Pulse 75 09/24/2024 10:42 AM EST Temperature 36.7 ??C (98 ??F) 09/24/2024 10:42 AM EST Respiratory Rate 20 09/24/2024 10:42 AM EST Oxygen Saturation 95% 09/24/2024 10:42 AM EST Inhaled Oxygen Concentration - - Weight 135 kg (297 lb) 09/24/2024 10:42 AM EST Height 180.3 cm (5' 11 ) 09/24/2024 10:42 AM EST Body Mass Index 41.42 09/24/2024 10:42 AM EST Plan of Treatment Upcoming Encounters Date Type Department Care Team (Late st Contact Info) Description 11/05/2024 11:30 AM EST Office Visit [facility] [address] [place] [address] Silverio Figueroa MD [address] [place] [phone] Health Maintenance Due Date Last Done Comments CT Colonography 1956 Colonoscopy 1956 Colorectal Cancer Screening 1956 Dental X-Ray: Full Mouth 1956 FIT DNA/Cologuard 1956 FIT 1956 FOBT 1956 Sigmoidoscopy 1956 Diabetes: Foot Exam 1966 Alcohol/Substance Use Screening 1968 Hepatitis A Vaccines (1 of 2 - Risk 2-dose series) 1975 Pneumococcal Vaccine: 50+ Years (1 of 2 - PCV) 1975 Hepatitis B Vaccines (1 of 3 - Risk 3-dose series) 2016 RSV Patients and Patients Aged 60 years or older (1 - Risk 60-74 years 1-dose series) 2016 Depression Screening 10/27/2023 10/27/2022, 10/27/19 23 COVID-19 Vaccine ( season) 2024 01/05/2021, 12/08/2020 Diabetes: Urine Protein Screening 09/20/2024 09/20/2023 Lipid Panel 09/20/2024 09/20/2023, 09/25, 01/05/2021 Eye Exam 12/14/2024 12/15/2023, 01/2023, 09/29/2022, Additional history exists Dental Oral Exam 01/30/2025 08/01/2024, 11/2023, 07/25/2023 Dental Prophylaxis 01/30/2025 08/01/2024, 0 01/26/2024, 07/25/2023, Additional history exists SDOH Screening 03/18/2025 03/18/2024 Diabetes: Hemoglobin A1C 03/24/202509/24/2 024, 03/25/2024, 10/27/2022, Additional history exists Dental X-Ray: Bitewings 08/02/2025 08/01/20 24, 07/25/2023, 07/06/2023 Tobacco Screening 09/24/2025 09/24/2024 DTaP/Tdap/Td Vaccines (2 - Td or Tdap) 08/22/2026 08/22/2016 Zoster Vaccines Completed 03/30/2021, 0512/2020, 06/26/2017 Influenza Vaccine Completed 06/05/2024, , 06/21/2022, Additional history exists HIB Vaccines Aged Out No longer eligi ble based on patient's age to complete this topic HPV Vaccines Aged Out No longer eligi ble based on patient's age to complete this topic IPV Vaccines Aged Out No longer eligi ble based on patient's age to complete this topic Meningococcal Vaccine Aged Out No esther hector eligible based on patient's age to complete this topic RSV under 20 months Aged Out No longe r eligible based on patient's age to complete this topic Rotavirus Vaccines Aged Out No longer eligible based on patient's age to complete this topic Procedures Procedure Name Priority Date/Time Associated Diagnosis Comments POCT GLUCOSE Routine 09/24/2024 11:36 AM EST Type 2 diabetes mellitus without complication, without long-term current use of insulin ([facility]) POCT GLYCATED HEMOGLOBIN, TOTAL Routine 09/24/2024 11:34 AM EST Type 2 diabetes mellitus without complication, without long-term current use of insulin ([facility]) ADJUNCTIVE GENERAL SERVICES - PROFESSIONAL VISITS - CASE PRESENTATION, SUBSEQUENT TO DETAILED AND EXTENSIVE TREATMENT PLANNING Routine 08/16/2024 9:30 AM EST 28 DB RESTORATIVE - RESIN-BASED COMPOSITE RESTORATIONS - DIRECT - RESIN-BASED COMPOSITE - TWO SURFACES, POSTERIOR Routine 08/16/2024 9:30 AM EST COMPREHENSIVE PERIODONTAL EVALUATION - NEW OR ESTABLISHED PATIENT Routine 08/01/2024 9:00 AM EST PERIODIC ORAL EVALUATION - ESTABLISHED PATIENT Routine 08/01/2024 9:00 AM EST ORAL HYGIENE INSTRUCTIONS Routine 08/01/2024 9:00 AM EST INTRAORAL - PERIAPICAL EACH ADDITIONAL RADIOGRAPHIC IMAGE Routine 08/01/2024 9:00 AM EST INTRAORAL - PERIAPICAL EACH ADDITIONAL RADIOGRAPHIC IMAGE Routine 08/01/2024 9:00 AM EST INTRAORAL - PERIAPICAL FIRST RADIOGRAPHIC IMAGE Routine 08/01/2024 9:00 AM EST BITEWINGS - 4 RADIOGRAPHIC IMAGES Routine 08/01/2024 9:00 AM EST ADJUNCTIVE GENERAL SERVICES - PROFESSIONAL VISITS - CASE PRESENTATION, SUBSEQUENT TO DETAILED AND EXTENSIVE TREATMENT PLANNING Routine 08/01/2024 9:00 AM EST PROPHYLAXIS - ADULT Routine 08/01/2024 9 :00 AM EST ALBUMIN, RANDOM URINE W/CREATININE Routine 09/20/2023 12:00 PM EST Primary hypertension Type 2 diabetes mellitus without complication, without long-term current use of insulin ([facility]) LIPID PANEL, STANDARD Routine 09/20/2023 11:59 AM EST Primary hypertension Type 2 diabetes mellitus without complication, without long-term current use of insulin ([facility]) from Last 3 Months or Most Recently Relevant to Health Maintenance Results * POCT Glucose (09/24/2024 11:36 AM EST) Glucose Blood, POC 122 60 - 200 mg/dL QC Media Lot # [id number] Lot# Expiration Date 482,[id number] Blood Capillary blood specimen / Unknown 09/24/2024 11:36 AM EST Silverio Figueroa MD POINT OF CARE TEST ENTER/ED IT ORDERABLES Final Result * POCT HGB A1C (09/24/2024 11:34 AM EST) Hemoglobin A1C 5.8 4.0 - 6.0 % QC Media Lot # [id number] Lot# Expiration Date [id number] Blood 09/24/2024 11:3 4 AM EST Silverio Figueroa MD POINT OF CARE TEST ENTER/ED IT ORDERABLES Final Result * Albumin, Random Urine W/Creatinine (09/20/2023 12:00 PM EST) Creatinine, Urine 98.73 mg/dL [facility] Microalbumin Urine 6.0 mg/L [facility] Microalbum Creatinine Ratio Ur 6.0 <30 ug/mg cr [facility] Comment:Albumin/Creatinine R atio Reference Ranges: Normal: < 30 ug/mg creatinine Microalbuminuria: 30 - 300 ug/mg creatinineClinical Albuminuria: > 300 ug/mg creatinine Urine (Urine, Random) 09/20/2023 12:00 PM EST 09/20/2023 2:09 PM EST us Silverio Figueroa MD LAB URINE ORDERABLES Final Result Performing Organization Address [facility] Co de Phone Number [facility] [address] [place] [phone] * (ABNORMAL) Lipid Panel, Standard (09/20/2023 11:59 AM EST) Triglycerides 156(H) <150 mg/dL [facility] Comment:Desirable Triglyceri de: less than 150 mg/dLBorderline High Triglyceride 150-199 mg/dLHigh Triglyceride: 200-499 mg/dLVery High Triglyceride: greater than or equal to 5OO mg/dL Cholesterol 145 <200 mg/dL [facility] Comment:Desirable Cholestero l: less than 200 mg/dLBorderline High Cholesterol: 200-239 mg/dLHigh Cholesterol: greater than 239 mg/dL LDL Cholesterol Calculated 80 <100 mg/dL [facility] Comment:Desirable LDL: less than 100 mg/dLNear Optimal/Above Optimal LDL: 110- 129 mg/dLBorderline High LDL: 130-159 mg/dLHigh LDL: 160-189 mg/dLVery High LDL: greater than or equal to 190 mg/dL HDL Cholesterol 34(L) >40 mg/dL [facility] Comment:Desirable HDL: great er than 40 mg/dL Note: This HDL assay may give artificially low results in patients with liver disease. Blood Venous blood specimen / Unknown 09/20/2023 11:59 AM EST 09/20/2023 2:09 PM EST us Silverio Figueroa MD LAB BLOOD ORDERABLES Final Result Performing Organization Address [facility]/ZIP Co de Phone Number [facility] [address] [place] [phone] from Last 3 Months or Most Recently Relevant to Health Maintenance Insurance MEDICARE HSN FULL DENTAL - HSN FULL (MEDICAID) Care Teams Metal Furniture Polisher Relationship Specialty Start Date End Date Silverio Figueroa MD [address] [place] [phone] PCP - General Internal Medicine 09/25/18
--- OUTSIDE RECORDS SUMMARY | 2024-11-01 11:38 | XMS_ITS | Encounter Summary ---
Author Organization [employer] Address [address] [place] [address] [address], [place] [address] Care Team Providers Care Band Saw Filer Name Role Phone Silverio Figueroa MD Primary Care Provider [phone] Reason for Visit * Reason Comments Med Refill Encounter Details Date Type Department Care Team ([facility] Contact Info) Description 10/22/2022 Refill [facility] MED & PEDS [address] [place] [address] Silverio Figueroa MD [address] [place] [address] Essential hypertension (Primary Dx) Social History Tobacco Use Types Packs/Day Years Used Date Smoking Tobacco: Every Day Cigarettes Cigars Smokeless Tobacco: Never Sex and Gender Information Value Date Recorded Sex Assigned at Male 07/25/2022 10:22 AM EDT Legal Sex Male 10:22 AM EDT Gender Identity Male 07/25/2022 10:22 AM EDT Sexual Orientation Straight 07/25/2022 10 :22 AM EDT COVID-19 Exposure Response Date Recorded In the last 10 days, have yo u been in contact with someone who was confirmed or suspected to have Coronavirus/COVID-19? No / Unsure 10/24/2022 9:02 AM EST documented as of this encounter Plan of Treatment Upcoming Encounters Date Type Department Care Team ([facility] Contact Info) Description 11/05/2024 11:30 AM EST Office Visit [facility] MED & PEDS [address] [place], [place] [phone] Silverio Figueroa MD [address] [place] [address] documented as of this encounter Visit Diagnoses Diagnosis Essential hypertension- Primary Unspecified essential hypertension documented in this encounter Care Teams Band Saw Filer Relationship Specialty Start Date End Date Silverio Figueroa MD [address] [place] [address] PCP - General Internal Medicine 09/25/18 documented as of this encounter
--- OUTSIDE RECORDS SUMMARY | 2024-11-01 11:38 | XMS_ITS | Encounter Summary ---
Author Organization [employer] Address [address] [facility] [address] [place] [address] Care Team Providers Care Slide Fasteners Inspector Name Role Phone Silverio Figueroa MD Primary Care Provider [phone] Encounter Details Date Type Department Care Team ([facility] st Contact Info) Description 04/24/2024 Orders Only [facility] MED & PEDS [address] [place], [place] [phone] Silverio Figueroa MD [address] [place] [address] Social History Tobacco Use Types Packs/Day Years [...] Description 11/05/2024 11:30 AM EST Office Visit [facility] MED & PEDS [address] [place] [address] Silverio Figueroa MD [address] [place] [address] documented as of this encounter Visit Diagnoses Not on filedocumented in this encounter Additional Health Concerns Assessment Noted Time PHQ-9 Depression Total Score: 0 10/27/19 23 1:49 PM EST documented as of this encounter Care Teams Slide Fasteners Inspector Relationship Specialty Start Date End Date Silverio Figueroa MD [address] [place] [address] PCP - General Internal Medicine 09/25/18 documented as of this encounter
--- OUTSIDE RECORDS SUMMARY | 2024-11-01 11:38 | XMS_ITS | Encounter Summary ---
Author Organization [employer] Address [address] [facility] [address] [place] [address] Care Team Providers Care Ironworker Apprentice Name Role Phone Silverio Figueroa MD Primary Care Provider [phone] Reason for Visit * Reason Onset Date Comments Medication Question 06/14/2024 Encounter Details Date Type Department Care Team ([facility] st Contact Info) Description 06/14/2024 Telephone [facility] [address] [place] [address] Silverio Figueroa MD [address] [place] [address] Medication Question Social History Tobacco Use Types Packs/Day Years [...] encounter Miscellaneous Notes * Telephone Encounter - Jack Verdin - 07/12/2024 2:11 PM EDT Tc from [facility] with [facility] medication management team requesting a call back in regards to pt not being on statin medication. Please contact at [phone] * Telephone Encounter - Tevin Gray - 06/28/2024 9:28 AM EDT Tc from [facility] requesting status on message above. * Telephone Encounter - Albert Nagel - 06/14/2024 9:32 AM EDT TC from [facility] states pt is a Diabetes pt not on a statin . Would like PCP to go over patient status to see if medication would help lower cardiac risk base line documented in this encounter Plan of Treatment Upcoming Encounters Date Type Department Care Team (Late st Contact Info) Description 11/05/2024 11:30 AM EST Office Visit [facility] MED & PEDS [address] [place] [address] Silverio Figueroa MD [address] [place] [address] documented as of this encounter Visit Diagnoses Not on filedocumented in this encounter Additional Health Concerns Assessment Noted Time PHQ-9 Depression Total Score: 0 10/27/19 23 1:49 PM EST documented as of this encounter Care Teams Ironworker Apprentice Relationship Specialty Start Date End Date Silverio Figueroa MD [address] [place] [address] PCP - General Internal Medicine 09/25/18 documented as of this encounter
--- OUTSIDE RECORDS SUMMARY | 2024-11-01 11:38 | XMS_ITS | Encounter Summary ---
Author Organization [employer] Address [address] [facility] [address] [place] [address] Care Team Providers Care Answering Service Telephone Operator Name Role Phone Silverio Figueroa MD Primary Care Provider [phone] Reason for Referral * Consultation (Routine) - Closed Specialty Diagnoses / Procedures Referred By Contvel t Referred To Contact Gastroenterology Diagnoses Achalasia Silverio Figueroa MD [address] [place] [phone] Phone: tel: fax: [facility] [address] [place], [place] Phone: tel: fax: Referral ID Status Reason Start Date Expiration Date V isits Requested Visits Authorized [id number] Closed Specialty Services Required 06/04/2024 06/04/2025 1 1 Encounter Details Date Type Department Care Team (Late st Contact Info) Description 06/04/2024 Orders Only [facility] CHC MED & PEDS [address] [place], [place] [phone] Silverio Figueroa MD [address] [place] [phone] Achalasia (Primary Dx) Social History Tobacco Use Types [...] 11/05/2024 11:30 AM EST Office Visit [facility] MED & PEDS [address] [place] [address] Silverio Figueroa MD [address] [place] [address] Scheduled Referrals Name Type Priority Associated Diagnoses Order Schedule Referral to Gastroenterology Outpatient Referral Routine Achalasia Expected: 06/04/2024 (Approximate), Expires: 06/04/2025 documented as of this encounter Visit Diagnoses Diagnosis Achalasia- Primary Achalasia and cardiospasm documented in this encounter Additional Health Concerns Assessment Noted Time PHQ-9 Depression Total Score: 0 10/27/19 23 1:49 PM EST documented as of this encounter Care Teams Answering Service Telephone Operator Relationship Specialty Start Date End Date Silverio Figueroa MD [address] [place] [address] PCP - General Internal Medicine 09/25/18 documented as of this encounter
[2024-11-01 14:17] LABS: MANUAL DIFF FLAG NO
[2024-11-01 14:23] LABS: Basophils Absolute Auto 0.1 X10*3/uL (0.0-0.2); Basophils Percent Auto 0.7 % (0-2); Eosinophils Absolute Auto 0.2 X10*3/uL (0.0-0.4); Eosinophils Percent Auto 1.8 % (0-4); Hematocrit 35.7 % (42.0-52.0); Hemoglobin 12.3 g/dl (14.0-18.0); Imm Gran Abs Auto 0.02 X10*3/uL (0.00-0.03); Imm Gran Pct Auto 0.2 % (0.0-0.4); Lymphocytes Absolute Auto 2.4 X10*3/uL (1.2-4.9); Lymphocytes Percent Auto 26.5 % (20-40); Mean Corpuscular HGB Conc 34.5 g/dl (31.0-36.0); Mean Corpuscular Hemoglobin 31.8 pg (27.0-33.0); Mean Corpuscular Volume 92.2 fL (80.0-98.0); Mean Platelet Volume 10.4 fL (9.4-12.4); Monocytes Absolute Auto 0.6 X10*3/uL (0.1-1.2); Monocytes Percent Auto 6.1 % (2-11); Neutrophils Percent Auto 64.7 % (45-73); Platelet Count 248 X10*3/uL (160-400); Red Blood Count 3.87 X10*6/uL (4.60-5.80); Red Cell Distribution Width 11.9 % (11.0-16.0); White Blood Count 9.2 X10*3/uL (4.8-10.8)
[2024-11-01 14:58] LABS: Alanine Aminotransferase 25 U/L (0-40); Albumin Level 4.4 g/dL (3.5-5.0); Alkaline Phosphatase 65 U/L (39-117); Anion Gap 15 (12-20); Aspartate Amino Transferase 32 U/L (5-37); Bilirubin Total 0.4 mg/dL (0.0-1.0); Blood Urea Nitrogen 17 mg/dL (9-16); Calcium 9.1 mg/dL (8.4-10.2); Carbon Dioxide 23 mmol/L (22-29); Chloride 104 mmol/L (96-108); Cholesterol 141 mg/dL (<200); Estimated Glomerular Filt Rate > 60; Glucose Random 105 mg/dL (60-115); HDL Cholesterol 34 mg/dL (>40); LDL Cholesterol Calculated 82 mg/dL (<100); Potassium 4.2 mmol/L (3.3-5.1); Sodium 138 mmol/L (135-145); Total Protein 8.2 g/dL (6.5-8.0); Triglycerides 128 mg/dL (<150)
[2024-11-01 15:18] LABS: TSH reflex Free T4 2.87 uIU/mL (0.32-4.0)
== END 2024-11-01 10:33 | disposition home or self-care (01) ==
LOC: HO.CHCLDS 10:32
PROVIDERS: Visit Provider Internal Medicine
DX: E11.9 Type 2 diabetes mellitus without complications (principal)
CPT/HCPCS: 36415; 80053; 80061; 84443; 85025

== ENCOUNTER 2025-08-14 10:30 | Outpatient (AMB) | payer MEDICARE, MEDICAID, SELFPAY ==
--- NOTE | 2025-08-14 10:35 | MHC.OFFVIS ---
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 Patient states he has one big vein on his right leg, no issues with the left leg. Patient had right knee replacement around 8-10 years ago. 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 The patient has a large cluster of varicose veins on the leg where a knee replacement was previously performed, and notes occasional pain and swelling. The patient also notes another vein that seems to be starting to protrude. Past medical history is significant for being born with club feet, which required multiple surgical corrections. The patient was previously evaluated in this office in July 2021 for the patient's arteries, which were found to be normal. 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 It has been affecting there daily activities including walking. It is noted more so in right leg. Patient denies any previous venous surgery or injections. Patient denies any history of DVT/ PE. Patient denies any history of phlebitis. Trial of compression includes - [id number] They now present for vascular evaluation regarding their varicose veins. [facility] Medical History HTN (hypertension) Elevated LFTs Chronic hepatitis C Pain in limb Nondependent tobacco use disorder Arthropathy Backache Pain in joint involving lower leg [place] Surgical History Hx of hernia repair Hx of total knee replacement Hx of appendectomy Hx of shoulder surgery Hx of foot surgery Hx of colonoscopy Social History Household Members: Spouse Alcohol intake: never Tobacco use type: Cigarette Cigarettes Per Day: 10 Review of Systems Const Reports as per HPI ENT Reports no additional complaints Card Denies chest pain, Denies chest pain at rest and Denies chest pain with activity Resp Denies chest congestion and Denies cough GI Reports no additional complaints Musc Details: pain over varicosities, aching of lower extremities, swelling, cramping, heaviness and tiredness, itching Denies abnormal gait Skin/Breast Reports pruritus and Denies wounds Neuro Reports no additional complaints and Denies abnormal gait Psych Denies no additional complaints Physical Exam Const General: cooperative, healthy appearing and comfortable Orientation/consciousness: oriented to person, oriented to place and oriented to time Neck Carotids: no bruits Chest Chest palpation & inspection: normal inspection of the chest and normal palpation of entire chest wall Resp Effort & Inspection: normal respiratory effort and able to speak in complete sentences Cardio Rate: regular rate Heart sounds: S1 normal heart sound present and S2 normal heart sound present Peripheral pulses: Peripheral pulses 2+ throughout GI Inspection: Yes normal to inspection Skin Other: +2 edema, large rope-like varicosities greater than 4 mm large cluster right medial thigh CEAP Classification C4 - skin color changes Ep - Etiology Primary As - superficial veins P - reflux General skin exam: dry skin Neuro General: oriented to person, oriented to place and oriented to time Extrem Right lower extremity: full ROM, normal capillary refill and edema Left lower extremity: full ROM, normal capillary refill and edema Psych Mental Status: mental status grossly normal Results Reviewed Results Reviewed: Venous testing of July 2021 was positive for reflux at that time. Assessment & Plan Assessment & Plan (1) Varicose veins of right lower extremity with inflammation: Code(s): I83.11 - Varicose veins of right lower extremity with inflammation Category: Medical Plan: In short, the patient has evidence of venous insufficiency. I have discussed the pathophysiology with the patient. In addition I have provided informational material regarding venous disease to the patient. We have discussed conservative measures including compression, elevation, and exercise. I have also provided a handout regarding appropriate use of compression stockings and where to purchase good compression stockings as well. I have taken the liberty of ordering venous insufficiency testing with the patient. They will follow up with me after testing. The patient had an opportunity to ask questions regarding the treatment plan. All questions were answered. Imaging studies, laboratory studies and physical exam results were discussed and reviewed in detail. No major barriers to understanding were identified. The patient expressed understanding and agreement with the above treatment plan. The patient is aware they should contact our office by phone for worsening of the current condition or the appearance of new symptoms. Thank you for allowing me to participate in the vascular care of this patient. If you have any questions or concerns regarding the treatment for the above condition please do not hesitate to contact me. The office telephone contact is [phone]. This note is constructed using voice recognition software. While every effort has been made to ensure accuracy, agricultural engineering technologist errors may have been included. Thank you for allowing me to participate in the care of your patient. Yours sincerely, Niels Holcomb MD, FACS, R.P.V.I. Orders: Orders US venous duplex LE BI Today I83.11 - Varicose veins of right lower extremity with inflammation Coding Level of Care Code New Pt Level 4 (67603) Diagnoses Varicose veins of right lower extremity with inflammation I83.11
--- OUTSIDE RECORDS SUMMARY | 2025-08-14 15:28 | XMS_ITS | Clinical Summary ---
Author Organization [facility] Address [address] [place] [address] Phone Care Team Providers Care Air Tube Releaser Name Role Phone Unavailable Primary Care Provider Unavailabl e Social History Tobacco Use Types Packs/Day Years Used Date Smoking Tobacco: Never Assessed Education Answer Date Recorded Are you interested in more education? Not on mary e 01/20/2023 Are you concerned about learning? Not on file 01/20/2023 No 01/20/2023 No 01/20/2023 Digital Access Answer Date Recorded No 02/18/2023 No 02/18/2023 No 02/18/2023 Reliable internet access at home? Not on file 02/18/2023 Device with a working camera? Not on file Sex and Gender Information Value Date Recorded Sex Assigned at Not on file Legal Sex Male 9:53 PM EDT Gender Identity Not on file Sexual Orientation Not on file Plan of Treatment Health Maintenance Due Date Last Done Comments Adult Td,Tdap Booster 1956 LIPID PANEL 1956 DEPRESSION SCREENING 1968 SMOKING Hx and SMOKELESS TOBACCO SCREENING 1969 HEPATITIS C SCREENING 1974 COLOGUARD 2001 COLONOSCOPY 2001 COLORECTAL CANCER SCREENING 2001 FIT TEST 2001 FOBT 2001 SIGMOIDOSCOPY 2001 VIRTUAL COLONOSCOPY 2001 PNEUMOCOCCAL VACCINES (50+ years) (1 of 1 - PCV) 2006 ZOSTER VACCINES (1 of 2) 2006 INFLUENZA VACCINE (#1) 2025 0, 06/10/2019 COVID-19 VACCINE (2 - 2024-2 6 season) 2025 12/08/2020 RSV VACCINE (1 - 1-dose 75+ series) 2031 HEPATITIS A VACCINES Aged Out No long er eligible based on patient's age to complete this topic HIB VACCINES Aged Out No longer eligi ble based on patient's age to complete this topic MENINGOCOCCAL VACCINES (ACWY) Aged Out No longer eligible based on patient's age to complete this topic MENINGOCOCCAL VACCINES (B) Aged Out N o longer eligible based on patient's age to complete this topic Medical Devices Not on file Additional Source Comments The information contained in this document represents components of the legal health record. It is not the complete legal health record.[facility]
== END 2025-08-14 11:01 | disposition home or self-care (01) ==
LOC: HO.HVS 10:31
PROVIDERS: PCP Internal Medicine; Visit Provider Surgery Vascular Surgery
DX: I83.11 Varicose veins of right lower extremity with inflammation (principal)
CPT/HCPCS: 99204

== ENCOUNTER → 2025-08-14 10:30 | Outpatient (BNVA) | payer MEDICARE, MEDICAID, SELFPAY | PROVIDERS: PCP Internal Medicine; Visit Provider Surgery Vascular Surgery | DX: I83.11 Varicose veins of right lower extremity with inflammation (principal); Z72.0 Tobacco use | CPT/HCPCS: 99202 ==